=== PATIENT | male | born 1955 | race Caucasian/White ===

== ENCOUNTER 2017-03-22 21:20 | Emergency (ER) | payer BC, MEDICARE ==
[2017-03-22 21:51] VITALS: BP 120/61
[2017-03-22 22:28] LABS: CHLORIDE,CL 105 mmol/L (98-107); SODIUM,NA 142 mmol/L (136-145)
--- NOTE | 2017-03-22 22:41 | EDM.PDOC ---
ED HPI GENERAL MEDICAL PROBLEM - General Chief Complaint: General Stated Complaint: little urine output, hx of fever Time Seen by Provider: 03/22/17 21:26 Source of Information: Reports: EMS Notes Reviewed, Snf Records History Limitations: Reports: Altered Mental Status - History of Present Illness INITIAL COMMENTS - FREE TEXT/NARRATIVE: Patient is forgetful with known history of dementia/alzheimers. HPI is taken through nurse and EMS reports. Was seen and treated last week for Influenza. No swab was taken, so confirmation of disease is not available. History of constipation. Treated with miralax and senna. He presents tonight with report of small amount of urine output and fever. Abdomen slightly distended. Was seen earlier today at the [facility] for complaints of sinus infection type symptoms. Sent back to care facility with instructions to treat symptoms. He does advocate for pelvic pain, no other complaints from him this evening. Onset: Gradual Onset Date: 03/22/17 Duration: Intermittent Location: Reports: Abdomen Severity: Mild Associated Symptoms: Reports: No Other Symptoms - Related Data Allergies Allergy/AdvReac Type Severity Reaction Status Date / Time No Known Allergies Allergy Verified 03/22/17 21:34 Home Meds: Home Meds Acetaminophen 650 mg PO Q4H PRN 03/22/17 [History] Acetaminophen [Tylenol Extra Strength] 1,000 mg PO BID 03/22/17 [History] Albuterol Sulfate 2.5 mg IH Q6H PRN 03/22/17 [History] Bisacodyl [Biscolax] 10 mg RC ASDIRECTED PRN 03/22/17 [History] Bisacodyl [Correctol] 5 mg PO ASDIRECTED PRN 03/22/17 [History] Cholecalciferol (Vitamin D3) [Vitamin D3] 2,000 unit PO DAILY 03/22/17 [History] ClonazePAM [KlonoPIN] 0.5 mg PO BID 03/22/17 [History] Divalproex Sodium [Depakote ER] 1,000 mg PO DAILY 03/22/17 [History] Divalproex Sodium [Depakote ER] 500 mg PO DAILY 03/22/17 [History] Gabapentin [Neurontin] 100 mg PO DAILY 03/22/17 [History] Mag Hydrox/Al Hydrox/Simeth [Rulox] 30 ml PO QID PRN 03/22/17 [History] Metoprolol Succinate 25 mg PO DAILY 03/22/17 [History] Mirtazapine 30 mg PO BEDTIME 03/22/17 [History] Multivitamin with Minerals [Multiple Vitamin] 1 tab PO DAILY 03/22/17 [History] OLANZapine 20 mg PO DAILY 03/22/17 [History] OLANZapine [Olanzapine] 10 mg IM Q6H PRN 03/22/17 [History] OLANZapine [Olanzapine] 10 mg PO Q6H PRN 03/22/17 [History] OLANZapine [ZyPREXA Zydis] 10 mg PO DAILY 03/22/17 [History] [place]-3/DHA/Epa/Fish Oil [[place] 3 500 Softgel] 1 each PO TID 03/22/17 [History] Polyethylene Glycol 3350 [MiraLAX] 17 gm PO DAILY 03/22/17 [History] Pramoxine HCl/Calamine [Aveeno Anti-Itch Lotion] 118 ml TP ASDIRECTED PRN [History] QUEtiapine Fumarate [Seroquel] 50 mg PO Q4H PRN 03/22/17 [History] Sennosides/Docusate Sodium [Senna Plus Tablet] 1 tab PO DAILY 03/22/17 [History] Sennosides/Docusate Sodium [Senna Plus Tablet] 2 tab PO DAILY 03/22/17 [History] Thiamine [Vitamin B-1] 100 mg PO BID 03/22/17 [History] Trolamine Salicylate/Aloe Vera [Aspercreme 10%] 17 gm PO DAILY PRN 03/22/17 [ History] Trolamine Salicylate/Aloe Vera [Aspercreme 10%] 35.4 gm TP ASDIRECTED PRN [History] Vitamin B Complex 1 each PO BID 03/22/17 [History] clonazePAM [Klonopin] 1 mg PO DAILY 03/22/17 [History] Past Medical History Cardiovascular History: Reports: Hypertension Gastrointestinal History: Reports: Chronic Constipation, GERD Musculoskeletal History: Reports: Osteoarthritis, Other (See Below) Other Musculoskeletal History: stiffness of left shoulder Neurological History: Reports: Neuropathy, Peripheral Psychiatric History: Reports: Addiction, Alzheimers Disease, Anxiety, Dementia , Depression, Psychosis, Suicidal Ideation, Other (See Below) Other Psychiatric History: 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, sleep disorder Social & Family History - Tobacco Use Smoking Status *Q: Unknown Ever Smoked ED ROS GENERAL - Review of Systems Review Of Systems: See Below Constitutional: Reports: Fever HEENT: Reports: No Symptoms Respiratory: Reports: No Symptoms Cardiovascular: Reports: No Symptoms Endocrine: Reports: No Symptoms GI/Abdominal: Reports: Abdominal Pain : Reports: No Symptoms Musculoskeletal: Reports: No Symptoms Skin: Reports: No Symptoms Neurological: Reports: No Symptoms Psychiatric: Reports: No Symptoms Hematologic/Lymphatic: Reports: No Symptoms Immunologic: Reports: No Symptoms ED EXAM, GENERAL - Physical Exam Exam: See Below Exam Limited By: No Limitations General Appearance: Alert, WD/WN, No Apparent Distress Eye Exam: Bilateral Eye: PERRL Ears: Normal TMs Nose: Normal Inspection, Normal Mucosa, No Blood Throat/Mouth: Normal Inspection, Normal Lips, Normal Teeth, Normal Gums, Normal Oropharynx, Normal Voice, No Airway Compromise Head: Atraumatic, Normocephalic Neck: Normal Inspection, Supple, Non-Tender, Full Range of Motion Respiratory/Chest: Rales (lower left lung) Cardiovascular: Normal Peripheral Pulses, Regular Rate, Rhythm, No Edema, No Gallop, No JVD, No Murmur, No Rub Peripheral Pulses: 2+: Posterior Tibial (L), Posterior Tibial (R), Dorsalis Pedis (L), Dorsalis Pedis (R) GI/Abdominal: Abnormal Bowel Sounds (hypoactive) Back Exam: Normal Inspection, Full Range of Motion, NT Extremities: Normal Inspection, Normal Range of Motion, Non-Tender, Normal Capillary Refill, No Pedal Edema Neurological: Alert, CN II-XII Intact, Confused, Disoriented, Slow to Respond Psychiatric: Normal Affect, Normal Mood Skin Exam: Warm, Dry, Intact, Normal Color, No Rash Lymphatic: No Adenopathy Course - Vital Signs Last Recorded V/S: Last Vital Signs Temp 37.7 C 03/22/17 21:31 Pulse 92 03/22/17 21:31 Resp 18 03/22/17 21:31 BP 120/61 03/22/17 21:31 Pulse Ox 95 03/22/17 21:31 - Orders/Labs/Meds Orders: Active Orders 24 hr Category Date Time Status Abdomen 2V AP Flat Upright [CR] Routine Exams 03/22/17 21:26 Ordered Chest 1V Frontal [CR] Stat Exams 03/22/17 21:26 Ordered CULTURE BLOOD [BC] Stat Lab 03/22/17 21:32 Ordered CULTURE BLOOD [BC] Stat Lab 03/22/17 21:32 Ordered Blood Culture x2 Reflex Set [OM.PC] Stat Oth 03/22/17 21:32 Ordered Labs: Laboratory Tests 03/22/17 03/22/17 03/22/17 Range/Units 21:41 21:54 21:54 WBC 11.9 H (4.0-10.0) x10^3/uL RBC 3.15 L (4.5-6.0) x10^6/uL Hgb 10.8 L (14.0-18.0) g/dL Hct 32.4 L (40.0-52.0) % MCV 102.9 H (78.0-93.0) fL MCH 34.3 H (26.0-32.0) pg MCHC 33.3 (32.0-36.0) g/dL RDW Coeff of Eric 12.8 (10.0-15.0) % Plt Count 248 (130-400) x10^3/uL Neut % (Auto) 72.4 (50.0-80.0) % Lymph % (Auto) 17.4 L (25.0-50.0) % Rush % (Auto) 9.7 (2.0-11.0) % Eos % (Auto) 0.3 (0.0-4.0) % Baso % (Auto) 0.2 (0.2-1.2) % Sodium 142 (136-145) mmol/L Potassium 3.8 (3.5-5.1) mmol/L Chloride 105 (98-107) mmol/L Carbon Dioxide 28 (21-32) mmol/L BUN 22 H (7-18) mg/dL Creatinine 1.1 (0.70-1.30) mg/dL Est Cr Clr Drug Dosing TNP Estimated GFR (MDRD) > 60 Glucose 118 H (74-106) mg/dL Lactic Acid (0.4-2.0) mmol/L Calcium 8.2 L (8.5-10.1) mg/dL Corrected Calcium 9.08 (8.5-10.1) mg/dL Total Bilirubin 0.4 (0.2-1.0) mg/dL AST 12 L (15-37) U/L ALT 12 L (16-63) U/L Alkaline Phosphatase 59 (46-116) U/L C-Reactive Protein 6.2 H (<=0.9) mg/dL Total Protein 7.1 (6.4-8.2) g/dL Albumin 2.9 L (3.4-5.0) g/dL Globulin 4.2 Albumin/Globulin Ratio 0.69 Urine Color Yellow (YELLOW) Urine Appearance Clear (CLEAR) Urine pH 6.5 (5.0-8.0) Ur Specific [place] 1.025 Urine Protein Trace H (NEGATIVE) mg/dL Urine Glucose (UA) Negative (NEGATIVE) mg/dL Urine Ketones Trace H (NEGATIVE) mg/dL Urine Occult Blood Negative (NEGATIVE) Urine Nitrite Negative (NEGATIVE) Urine Bilirubin Negative (NEGATIVE) Urine Urobilinogen 0.2 (0.2) EU/dL Ur Leukocyte Esterase Negative (NEGATIVE) Urine RBC 0-5 (NOT SEEN) /HPF Urine WBC Not seen (NOT SEEN) /HPF Ur Squamous Epith Cells Not seen (NEGATIVE) /HPF Urine Bacteria Not seen (NEGATIVE) /HPF Urine Mucus Not seen (NEGATIVE) /LPF 03/22/17 Range/Units 21:54 WBC (4.0-10.0) x10^3/uL RBC (4.5-6.0) x10^6/uL Hgb (14.0-18.0) g/dL Hct (40.0-52.0) % MCV (78.0-93.0) fL MCH (26.0-32.0) pg MCHC (32.0-36.0) g/dL RDW Coeff of Eric (10.0-15.0) % Plt Count (130-400) x10^3/uL Neut % (Auto) (50.0-80.0) % Lymph % (Auto) (25.0-50.0) % Rush % (Auto) (2.0-11.0) % Eos % (Auto) (0.0-4.0) % Baso % (Auto) (0.2-1.2) % Sodium (136-145) mmol/L Potassium (3.5-5.1) mmol/L Chloride (98-107) mmol/L Carbon Dioxide (21-32) mmol/L BUN (7-18) mg/dL Creatinine (0.70-1.30) mg/dL Est Cr Clr Drug Dosing Estimated GFR (MDRD) Glucose (74-106) mg/dL Lactic Acid 1.5 (0.4-2.0) mmol/L Calcium (8.5-10.1) mg/dL Corrected Calcium (8.5-10.1) mg/dL Total Bilirubin (0.2-1.0) mg/dL AST (15-37) U/L ALT (16-63) U/L Alkaline Phosphatase (46-116) U/L C-Reactive Protein (<=0.9) mg/dL Total Protein (6.4-8.2) g/dL Albumin (3.4-5.0) g/dL Globulin Albumin/Globulin Ratio Urine Color (YELLOW) Urine Appearance (CLEAR) Urine pH (5.0-8.0) Ur Specific [place] Urine Protein (NEGATIVE) mg/dL Urine Glucose (UA) (NEGATIVE) mg/dL Urine Ketones (NEGATIVE) mg/dL Urine Occult Blood (NEGATIVE) Urine Nitrite (NEGATIVE) Urine Bilirubin (NEGATIVE) Urine Urobilinogen (0.2) EU/dL Ur Leukocyte Esterase (NEGATIVE) Urine RBC (NOT SEEN) /HPF Urine WBC (NOT SEEN) /HPF Ur Squamous Epith Cells (NEGATIVE) /HPF Urine Bacteria (NEGATIVE) /HPF Urine Mucus (NEGATIVE) /LPF - Radiology Interpretation Free Text/Narrative:: Labs show mild elevation of WBC's, urine does not indicate stones or infection. Elevation CRP at 6.2, normal lactic acid values. Normal electrolyte values. X-ray chest, abdominal flat and upright show no acute issues. Departure - Departure Time of Disposition: 23:02 Disposition: DC/Tfer to [facility] 03 Condition: Fair Clinical Impression: Upper respiratory infection - Discharge Information Instructions: Viral Respiratory Infection, [id number], Sinusitis, Adult, Easy -to-Read Additional Instructions: Continue to treat symptomatically for respiratory and sinus infection per Amalia Munguia from the [facility]. Hydrate as needed, use OTC preparations for congestion, tylenol and ibuprofen for fever. No kidney stones seen on x-ray, stomach pain and distention improved significantly after being catheterized. Please call with any questions or concerns. - Problem List & Annotations (1) Upper respiratory infection SNOMED Code(s): 55956351 Code(s): J06.9 - ACUTE UPPER RESPIRATORY INFECTION, UNSPECIFIED Status: Acute Priority: Low Current Visit: Yes Qualifiers: URI type: unspecified viral URI Qualified Code(s): J06.9 - Acute upper respiratory infection, unspecified - Problem List Review Problem List Initiated/Reviewed/Updated: Yes - My Orders Last 24 Hours: My Active Orders 03/22/17 21:26 Abdomen 2V AP Flat Upright [CR] Routine Chest 1V Frontal [CR] Stat 03/22/17 21:32 CULTURE BLOOD [BC] Stat CULTURE BLOOD [BC] Stat Blood Culture x2 Reflex Set [OM.PC] Stat - Assessment/Plan Last 24 Hours: My Active Orders 03/22/17 21:26 Abdomen 2V AP Flat Upright [CR] Routine Chest 1V Frontal [CR] Stat 03/22/17 21:32 CULTURE BLOOD [BC] Stat CULTURE BLOOD [BC] Stat Blood Culture x2 Reflex Set [OM.PC] Stat Assessment:: Viral respiratory infection Plan: Continue to treat symptomatically for respiratory and sinus infection per Amalia Munguia from the [facility]. Hydrate as needed, use OTC preparations for congestion, tylenol and ibuprofen for fever. No kidney stones seen on x-ray, stomach pain and distention improved significantly after being catheterized. Please call with any questions or concerns.
== END 2017-03-22 23:24 ==
LOC: MERGE 21:20 → VM.ED 21:20
DX: J06.9 Acute upper respiratory infection, unspecified (principal); I10 Essential (primary) hypertension; Z79.899 Other long term (current) drug therapy
CPT/HCPCS: 36415; 51701; 51798; 71045; 74019; 80053; 81001; 83605; 85025; 86140; 87040; 99284